=== PATIENT | male | born 1995 | race Hispanic/Latino ===

== ENCOUNTER 2020-06-18 17:34 | Emergency (ER) | payer OTHER, SELFPAY ==
[2020-06-18 17:39] VITALS: BP 128/77; PULSE 89; RESP 16; TEMP 36.7; O2SAT 99
--- NOTE | 2020-06-18 17:41 | DI.RAD.S_ITS ---
PROCEDURE: XR ANKLE LT MIN 3V INDICATIONS: lateral ankle pain, rolled it TECHNIQUE: 3 views of the ankle were acquired. COMPARISON: None. FINDINGS: Bones: No fractures or dislocations. Ankle mortise is normally aligned. No suspicious bony lesions. Soft tissues: No tibiotalar joint effusion. Achilles tendon appears normal. Soft tissue swelling over the lateral malleolus. IMPRESSION: No fracture or dislocation. Soft tissue swelling over the lateral malleolus. Dictated by: Halle Tirado M.D. on 06/18/2020 at 16:51 Approved by: Halle Tirado M.D. on 06/18/2020 at 16:53
--- NOTE | 2020-06-18 18:42 | ED_ITS ---
HPI - Extremity Injury (Lower) General Chief Complaint: Extremity Injury, Lower Stated Complaint: left ankle pain Time Seen by Provider: 06/18/20 18:37 Source: patient Mode of arrival: Ambulatory Limitations: no limitations History of Present Illness HPI Narrative: 24-year-old otherwise healthy male here for evaluation of left ankle injury. Patient states that approximately 2 hours prior to arrival here in the emergency department he was wearing a pair of stool to over the ankle boots however he states that they did not provide much ankle support. He states he got out of his truck and twisted his ankle in an inversion type manner. Had pain afterwards. Was able to ambulate but had quite a bit of discomfort. Came to the emergency department. By the time I evaluated the patient he states that his symptoms have almost completely resolved. Related Data Allergies Allergy/AdvReac Type Severity Reaction Status Date / Time No Known Drug Allergies Allergy Verified 06/18/20 17:41 Review of Systems Constitutional Constitutional: Denies fever(s) Musculoskeletal Musculoskeletal: Denies tingling Comments: Left ankle injury Integumentary/Breasts Skin/Breast: Denies rash Neurologic Neurologic: Denies behavioral changes and Denies tingling Psychiatric Psychiatric: Denies behavioral changes Patient History Medical History Patient denies medical problems (Acute) Social History lives independently: Yes Exam Initial Vital Signs Initial Vital Signs: Vital Signs Temperature 98.1 F 06/18/20 17:39 Pulse Rate 89 06/18/20 17:39 Respiratory Rate 16 06/18/20 17:39 Blood Pressure 128/77 06/18/20 17:39 Pulse Oximetry 99 06/18/20 17:39 Const General: cooperative and healthy appearing Resp Effort & Inspection: normal respiratory effort Cardio Pulses: dorsalis pedis present on the left Skin Lesions: no lesions Rashes: no rashes Neuro Gait: normal gait Sensory Exam: no sensory deficits noted Extrem Other: No proximal fibula tenderness on the left. Some tenderness to palpation anterior and superior to the lateral malleolus however no bruising. No swelling. Psych Appearance: grossly normal and well kempt Course Orders Ordered: ED Orders 06/18/20 17:41 XR ankle LT min 3V Stat Vital Signs Vital signs: Vital Signs - 8 hr 06/18/20 17:39 Temperature 98.1 F Pulse Rate 89 Respiratory Rate 16 Blood Pressure 128/77 Pulse Oximetry 99 MDM - Extremity Injury (Lower) Imaging Data Extremity x-ray #1: Radiologist's Impression: [address] [address] XRay Report Signed Patient: Saul Mccullough MMR#: [id number] : 1995Acct:[id number] Age/Sex: 24 / MDate of Service: 06/18/20 Loc: ED Accession Number: [id number] Procedure: XR ankle LT min 3V Ordering Provider: Brody Corley MD PROCEDURE: XR ANKLE LT MIN 3V INDICATIONS: lateral ankle pain, rolled it TECHNIQUE: 3 views of the ankle were acquired. COMPARISON: None. FINDINGS: Bones: No fractures or dislocations. Ankle mortise is normally aligned. No suspicious bony lesions. Soft tissues: No tibiotalar joint effusion. Achilles tendon appears normal. Soft tissue swelling over the lateral malleolus. IMPRESSION: No fracture or dislocation. Soft tissue swelling over the lateral malleolus. Dictated by: Halle Tirado M.D. on 06/18/2020 at 16:51 Approved by: Halle Tirado M.D. on 06/18/2020 at 16:53 [facility] Narrative Medical decision making narrative: Neurovascular intact, x-rays negative. Patient ambulatory. Discussed rice. Discussed return precautions. Expressed understanding and agreement. Discharge Plan Departure Patient Disposition: Home Clinical Impression: Ankle sprain and strain Instructions: DI for Ankle Sprain Activity Restrictions/Additional Instructions: You have no restrictions on your activities. You can expect some bruising/swelling. Keep your ankle elevated and iced as needed. Return to the emergency department for any new or worsening symptoms
== END 2020-06-18 18:57 | disposition home or self-care (01) ==
PROVIDERS: Emergency Provider Emergency Medicine
DX: S93.402A Sprain of unspecified ligament of left ankle, initial encounter (principal); S96.912A Strain of unspecified muscle and tendon at ankle and foot level, left foot, initial encounter
CPT/HCPCS: 73610; 99281; 99283